=== PATIENT | female | born 1985 | race Caucasian/White ===

== ENCOUNTER → 2019-05-19 10:15 | Outpatient (CLI) | payer MEDICAID, SELFPAY ==
[2019-05-19 11:33] LABS: hCG Titer Quant., Serum < 1 mIU/mL (1-3)
== END ==
PROVIDERS: Referring Provider Obstetrics & Gynecology; Visit Provider Obstetrics & Gynecology
DX: N91.2 Amenorrhea, unspecified (principal)
CPT/HCPCS: 36415; 84702

== ENCOUNTER 2019-06-18 15:29 | Emergency (ER) | payer MEDICAID, SELFPAY ==
[2019-06-18 15:31] VITALS: BP 139/77; PULSE 63; RESP 14; TEMP 36.9; O2SAT 97; BMI 31.8
--- NOTE | 2019-06-18 15:55 | ED.VIS.GEN ---
History of Present Illness Informant: Patient Onset: Days - 3 days Context: Gradual Onset Timing: Continuous Quality: aching Location: bilateral ears Current Severity: Moderate Maximum Severity: Moderate Worsened by: Nothing Relieved by: nothing Associated Symptoms: Nasal congestion Narrative: 33-year-old female presents with bilateral ear pain for 3 days. She feels a fullness in her ear. No tinnitus or dizziness. No headache or neck pain. No fevers. Also complains of nasal congestion. No sinus pain or pressure. No sore throat or cough. No vomiting or diarrhea. No recent airplane travel scuba diving or trauma Prior similar symptoms: Yes Recent Illness/Hospitalization: No <Roberto Douglass - Last Filed: 06/18/19 15:56> <AlexisPhill - Last Filed: 06/18/19 16:14> Chief Complaint: Ear Problem Past Medical History Prior records reviewed: Yes Past Medical History: None Surgical History: no surgical history Lives: With Family Smoking Status: Current every day smoker <Roberto Douglass - Last Filed: 06/18/19 15:56> <Phill Espinoza - Last Filed: 06/18/19 16:14> - Allergies and Home Meds Allergies/Adverse Reactions: Allergies prednisone Allergy (Verified 06/18/19 15:31) Anaphylaxis Primary Care Physician: Babak Pimentel MD [NON-STAFF] - Care Physician,No Primary [Primary Care Provider] - Review of Systems All systems negative except as indicated ENT: Reports: Bilateral ear pain <Roberto Douglass - Last Filed: 06/18/19 15:56> Eyes: Denies: Visual changes - bilaterally, Blurred Vision - bilaterally, Diplopia ENT: Denies: Rhinorrhea, Sore throat Gastrointestinal: Denies: Nausea, Vomiting Musculoskeletal: Denies: Myalgias, Arthralgias, Neck pain Skin: Denies: Rash Hematologic: Denies: Easy bruising, Easy bleeding, Lymphadenopathy Allergy: Denies: Uticaria, Swelling of the mouth, Swelling of the tongue <AlexisPhill - Last Filed: 06/18/19 16:14> Physical Exam Vital Signs/Narrative: Vital Signs Temp Pulse Resp BP Pulse Ox 06/18/19 15:31 98.4 F 63 14 139/77 H 97 Inital Vital Signs reviewed: Yes General: Well nourished, Well developed, No Acute Distress Head: Normocephalic, Atraumatic Eyes: Perrl, EOMI ENT: Moist mucous membranes, TM's clear, Nasal congestion Neck: Supple, Nontender, No lymphadenopathy, No JVD Cardiovascular: Regular rate, Regular rhythm, No murmurs Respiratory: No distress, CTA bilaterally, Chest nontender Abdomen: Soft, Nontender, Nondistended, Normal bowel sounds, No masses Back: Nontender, Normal Inspection Extremities: Nontender, No edema Skin: Normal color, No rash Neurological: Alert, Oriented x3 Psychological: Normal affect <Roberto Douglass - Last Filed: 06/18/19 15:56> Vital Signs/Narrative: Vital Signs Temp Pulse Resp BP Pulse Ox 06/18/19 15:31 98.4 F 63 14 139/77 H 97 <Phill Espinoza - Last Filed: 06/18/19 16:14> Diagnostic/Tx/Re-eval - Medical Decision Making No evidence of external otitis or otitis media bilaterally. The patient has a small amount of fluid behind both tympanic membranes. Will place on a decongestant. Discussed smoking cessation. Discussed follow-up with primary care. Return precautions given. She is discharged <RafatRoberto - Last Filed: 06/18/19 15:56> - Medical Decision Making Patient's history is remarkable for bilateral ear pain for the past 3 days. She states pain is worse when she is supine. She denies rhinorrhea, congestion or postnasal drainage. She denies sore throat. She denies cough. She denies drainage from her ear. She does admit to frequent infections when she was a child. She denies headache. Denies visual, ocular auditory symptoms. She denies inability to open or close her mouth completely. She denies dental pain. She denies anterior or posterior neck pain. There is no history of trauma. She denies ringing or ears. Vital signs are noted. Patient appears no distress as I entered the room. She had pain out of proportion when I pulled on the right left auricle pushed on the right or left tragus. However when I pulled the posterior aspect of her ear to visualize her TM she did not complain of pain. There is evidence of scarring right TM with serous otitis. The left TM appears normal. There is no pain the patient over the TMJ joint and there is no clicking with opening close her mouth nor is her any pain. Patient has 10 lower teeth that remain with significant dental disease i.e. caries, gingivitis and periodontal disease. There is no evidence of swelling of the roof the mouth or gum. Uvula is midline. There is no exudate noted posterior pharynx. There is no muffled voice. Trach is midline. There is no stridor. There is no lymphadenopathy. There is no tenderness to palpation over the mastoids. Patient was informed that she does have a primary care provider that primary care provider is listed on her insurance card. She was treated with NSAIDs and she has no contraindication and decongestant. <Phill Espinoza - Last Filed: 06/18/19 16:14> ED Disposition <Roberto Douglass - Last Filed: 06/18/19 15:56> <Phill Espinoza - Last Filed: 06/18/19 16:14> - Plan for ED Patient: Disposition: Home or Assisted Living Diagnosis: Eustachian tube dysfunction Instructions: EARACHE w/o Infection (Adult) Prescriptions: Oxymetazoline HCl [Afrin] 15 ml NS DAILY #1 spray Prescription Printed Loratadine 10 mg PO DAILY #30 cap Prescription Printed Referrals: Care Physician,No Primary [Primary Care Provider] - Babak Pimentel MD [NON-STAFF] - Additional Instructions: Please check to see who your primary care physician is on your [place] card and call make an appointment with this physician.
== END 2019-06-18 16:19 | disposition home or self-care (01) ==
PROVIDERS: Emergency Provider Physician Assistant Medical
DX: H69.93 Unspecified Eustachian tube disorder, bilateral (principal); F17.200 Nicotine dependence, unspecified, uncomplicated
CPT/HCPCS: 99282

== ENCOUNTER 2020-12-08 13:55 | Emergency (ER) | payer MEDICAID, SELFPAY ==
[2020-12-08 13:57] VITALS: BP 136/75; PULSE 84; RESP 16; TEMP 36.7; O2SAT 96; BMI 25.0
--- NOTE | 2020-12-08 14:24 | ED.RN ---
[facility] CALL[facility], PATIENT IS TALKING WITH SHEREEN [facility] ON THE PHONE.
[2020-12-08 14:41] VITALS: BP 120/76; PULSE 74; RESP 16; O2SAT 99
--- NOTE | 2020-12-08 14:46 | ED.VIS.GEN ---
History of Present Illness Chief Complaint: Mental Health Informant: Patient Onset: Today Narrative: Patient brought in by police with a pink slip. Patient states that her fianc? told her today that he is still in love with his ex- and is leaving her. Reportedly the ex- also lives with them. Patient states that she tends to give herself tattoos when she is upset because she likes the pain. She showed me several tattoos on her right leg that she has done herself. Patient's ex reported to police that the patient was holding a knife to herself stating that she wanted to kill herself. Police document on their pink note that the patient stated she went to hurt herself by giving herself a tattoo. There is no documentation that statements of line to kill herself were made to police. At this time patient is very adamant that she has no intention of killing herself. She states she does give herself tattoos to feel pain and release her anger. - Past Medical History (1) Asthma Status: Chronic (2) Cervical cancer Status: Chronic Past Medical History - Allergies and Home Meds Allergies/Adverse Reactions: Allergies prednisone Allergy (Verified 12/08/20 13:57) Anaphylaxis Primary Care Physician: [facility] [GROUP OF PHYSICIANS] - As soon as possible Surgical History: appendectomy Lives: With Family Smoking Status: Current every day smoker Alcohol: Occasional Drugs: Marijuana Review of Systems General: Denies: Chills, Fever Eyes: Denies: Visual changes - bilaterally ENT: Denies: Bilateral ear pain Cardiovascular: Denies: Chest pain Respiratory: Denies: Dyspnea, Cough Gastrointestinal: Denies: Abdominal pain, Nausea, Vomiting, Diarrhea Genitourinary: Denies: Dysuria Musculoskeletal: Denies: Extremity Pain Skin: Reports: Wounds Neurological: Denies: Headache Psych: Reports: Anxiety. Denies: Suicidal thoughts Hematologic: Denies: Easy bruising, Easy bleeding Allergy: Denies: Uticaria Physical Exam Vital Signs/Narrative: Vital Signs Temp Pulse Resp BP Pulse Ox 12/08/20 14:41 74 16 120/76 99 12/08/20 13:57 98.1 F 84 16 136/75 H 96 Inital Vital Signs reviewed: Yes General: Well nourished, Well developed Head: Normocephalic ENT: Moist mucous membranes, - - Abrasion noted over the nasal bridge. Patient states this is from a fall 1 week ago. Neck: Supple Cardiovascular: Regular rate, Regular rhythm Respiratory: No distress, CTA bilaterally Abdomen: Soft, Nontender, Nondistended Back: Nontender Extremities: Nontender, No edema Skin: Normal color, No rash Neurological: Alert, Oriented x3 Psychological: - - Patient is anxious. She feels that she does not need to be here in the emergency room. She states multiple times that she has no intentions of killing herself. She does admit that she likes to give her self tattoos to feel pain and release her pent up feelings. Diagnostic/Tx/Re-eval - Medical Decision Making Patient states that she is well-known to the counseling center. I spoke with Agnela, on-call for them today. She was able to review the patient's records. She spoke with the patient on the phone as well. She agrees with the patient at this time is not indicating any desire to kill herself. Patient be discharged and counseling center will do a follow-up phone call later today to ensure patient is doing well. ED Disposition - Plan for ED Patient: Disposition: Home or Assisted Living Diagnosis: Anxiety Instructions: ED Anxiety Reaction Referrals: [facility] [GROUP OF PHYSICIANS] - As soon as possible
== END 2020-12-08 14:57 | disposition home or self-care (01) ==
PROVIDERS: Emergency Provider Emergency Medicine
DX: F41.9 Anxiety disorder, unspecified (principal); F17.200 Nicotine dependence, unspecified, uncomplicated; Z85.41 Personal history of malignant neoplasm of cervix uteri
CPT/HCPCS: 99283

== ENCOUNTER 2021-04-24 09:47 | Emergency (ER) | payer MEDICAID, SELFPAY ==
[2021-04-24 09:49] VITALS: BP 142/78; PULSE 69; RESP 17; TEMP 36.6; O2SAT 97; BMI 30.6
--- NOTE | 2021-04-24 09:56 | RAD_ITS ---
STUDY: X-RAY - RIGHT FOOT CLINICAL: Female, 35 years old. Injury/Pain TECHNIQUE: 3 view(s) of the foot. COMPARISON: None. FINDINGS: Normal talus, calcaneus, and tarsal bones. Normal visualized subtalar, talonavicular, calcaneocuboid, tarsal and tarsometatarsal articulations. Normal metatarsi. Normal metatarsophalangeal joint of the great toe. Normal tibial and fibular sesamoid bones. Normal interphalangeal joint of the great toe. Normal phalanges of the great toe. Normal second through fifth metatarsophalangeal joints. Normal interphalangeal joints and phalanges of the lesser toes. The soft tissue structures are unremarkable. RAD/Foot min 3 Views IMPRESSION: Normal x-ray examination of the foot. Electronically Signed: Ender Schneider MD at 10:34 EDT , Service support ,
--- NOTE | 2021-04-24 09:57 | ED.VIS.LOWEX ---
HPI History of Present Illness Chief Complaint: Lower Extremity Injury Detail of Chief Complaint: Right foot pain after blunt trauma Informant: patient Occured/Mechanism Mechanism/Context: Yes injury and Yes blunt trauma Onset/Context/Timing Onset: Yesterday Context: Sudden Onset Timing: Continuous Quality of Pain: Dull and Aching Location: Lateral right foot Current Severity: Mild Maximum Severity: Severe Worsened by: Attempt to bear weight Relieved by: Nothing Associated Symptoms Associated Symptoms: Positive for Loss of Funtion; Negative for Parasthesia and Weakness Narrative Narrative: Patient is a 35-year-old woman with no significant past medical history who presents with chief complaint of injury to her right foot. This occurred last evening while playing with her son. She states she injured it. She has a scrape due to the concrete. She localizes the pain to the lateral side of the right foot. Last tetanus is unknown. Patient denies paresthesia, anesthesia medics. States nothing has alleviated the pain. She denies history of diabetes. She denies history of PAD. Tetanus Immunization: Unknown Prior similar symptoms: No Recent Illness/Hospitalization: No PFSH PFSH Medical History Anxiety Depression Home Medications hydrocodone-acetaminophen 1 tab PO Q6H PRN PRN 5 Days #20 tablet 04/24/21 [Rx Last Taken Unknown] mirtazapine [Remeron] 15 mg PO DAILY 04/24/21 [History Last Taken Unknown] sertraline [Zoloft] 100 mg PO DAILY 04/24/21 [History Last Taken Unknown] Allergy/AdvReac Type Severity Reaction Status Date / Time prednisone Allergy Anaphylaxis Verified 04/24/21 09:47 Surgical History History of appendectomy History of tonsillectomy Social History (Updated 04/24/21 @ 09:[address] Phill Espinoza MD) household members: family Smoking Status: Current every day smoker tobacco type: cigarettes alcohol intake: current alcohol intake frequency: a few times a month substance use type: does not use ROS ROS ED Constitutional Constitutional ED: Denies chills, fever(s) or subjective Eyes Eyes: Denies blurry vision or change in vision ENT ENT ED: Denies ear pain, rhinorrhea or sore throat Musculoskeletal Musculoskeletal: Denies arthralgias, back pain, myalgias or neck pain Integumentary Reports Abrasions; Denies abscess or rash Hematologic/Lymphatic Hematologic/Lymphatic: Denies easy bleeding or easy bruising Allergic/Immunologic Allergic/Immunologic ED: Denies mouth swelling, tongue swelling or urticaria EXAM Physical Exam Const Vital Signs: 04/24/21 09:49 Temperature 97.8 F Temperature Source Temporal Pulse Rate 69 Respiratory Rate 17 Blood Pressure 142/78 H Blood Pressure Mean 99 Pulse Ox 97 Oxygen Delivery Method Room Air Positive well nourished, well developed and obese General Appearance ED: well developed Nutritional Appearance: obese HEENT atraumatic Eyes PERRL Eyes Narrative: Extract muscle intact. Sclerae anicteric. Neck full ROM Resp normal respiratory effort and clear to auscultation bilaterally Cardio regular rate, regular rhythm, S1 normal heart sound, S2 normal heart sound and no murmurs Extremity Negative for normal to inspection Extremity Narrative: There is an abrasion dorsal surface of the right little toe. There is pain palpation of the base of the fifth metatarsal. There is no pain elevation over the lateral medial malleolus. DP and PT pulse are palpable. The foot is swollen and discolored. General Extremety ED: Yes weight-bearing difficulty; Negative for cyanosis or edema General Extremity: weight-bearing difficulty; Negative for cyanosis or edema Neuro oriented x3, CN's II-XII intact bilaterally and no sensory deficits noted Sensorium / Orientation: alert Motor Exam: strength 5/5 throughout Psych mental status grossly normal Skin Lesions: no lesions Rashes: no rashes Trauma: abrasion MDM MDM MDM Narrative Medical decision making narrative: X-ray was obtained to evaluate for contusion versus fracture. Concern for fracture at the base of the fifth metatarsal. Patient was medicated with NSAID and opiate analgesia. Tetanus was updated. Radiography Diagnostic Testing: Three-view x-ray of the right foot reveals a nondisplaced fracture of the fifth metatarsal at the base. This does not involve the metaphysis. Treatment is postop shoe and crutches. She was referred to orthopedist [employer] chief. Since the orthopedist on-call is Dr. Rodo Tavera she is referred to podiatry. Discharge Plan Triage Chief Complaint: Lower Extremity Injury ED Provider: Phill Espinoza Dx/Rx/DC Orders Clinical Impression: Brown fracture Instructions: Fifth Metatarsal Fx Prescriptions: New hydrocodone-acetaminophen [hydrocodone-acetaminophen] 1 TABLET tablet 1 tab PO Q6H PRN PRN (Reason: Pain) 5 Days Qty: 20 RF: 0 No Action sertraline [Zoloft] 100 mg Tablet 100 mg PO DAILY RF: 0 mirtazapine [Remeron] 15 mg Tablet 15 mg PO DAILY RF: 0 Primary Care Provider: Care Physician,No Primary Referrals: Jessie Levy DPM [STAFF PHYSICIAN] - 5-7 Days Care Physician,No Primary [Primary Care Provider] - Activity Restrictions/Additional Instructions: 1. Weight as tolerated 2. Elevate and ice as much as possible 3. Contact Dr. Reid's office today for follow-up in 5 to 7 days Disposition Disposition: Home, Self Care
[2021-04-24] MEDS: Diphth,Pertuss(Acell),Tet Vac 0.5 ML Vial IM (10:28)
[2021-04-24] MEDS: Ibuprofen 600 MG Tablet PO (10:28)
[2021-04-24] MEDS: HYDROcodone Bitartrate/Apap 5/325 Tablet PO (10:28)
== END 2021-04-24 10:57 | disposition home or self-care (01) ==
PROVIDERS: Emergency Provider Emergency Medicine
DX: S92.351A Displaced fracture of fifth metatarsal bone, right foot, initial encounter for closed fracture (principal); E66.9 Obesity, unspecified; F17.210 Nicotine dependence, cigarettes, uncomplicated; F32.9 Major depressive disorder, single episode, unspecified; X58.XXXA Exposure to other specified factors, initial encounter; Z79.899 Other long term (current) drug therapy
CPT/HCPCS: 73630; 90471; 90715; 99285

== ENCOUNTER 2021-08-08 22:52 | Emergency (ER) | payer MEDICAID, SELFPAY ==
[2021-08-08 22:53] VITALS: BP 120/67; PULSE 118; RESP 22; TEMP 35.6; O2SAT 96; BMI 34.4
[2021-08-08 22:59] VITALS: BP 120/67; PULSE 118; RESP 22; TEMP 36.8; O2SAT 96
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
[2021-08-08] MEDS: Ziprasidone IM 20 MG/ML VIAL IM (23:33)
[2021-08-09] VITALS (13 sets, daily range): BP systolic 118–144; BP diastolic 62–73; PULSE 64–77; RESP 14–18; TEMP 36.6; O2SAT 95–99
[2021-08-09 00:26] LABS: Absolute Lymphocyte Count 3.28 X10^3/uL (0.83-4.51); Absolute Neutrophil Count 3.9 X10^3/uL (2.0-7.7); Basophil# 0.03 X10^3/uL; Basophil% 0.4 % (0-1); Eosinophil# 0.06 X10^3/uL; Eosinophils% 0.8 % (0-5); Hematocrit 37.9 % (37-47); Hemoglobin 12.5 g/dL (12.0-15.0); Lymphocyte # 3.28 X10^3/ul (0.83-4.51); Lymphocyte % 41.9 % (19-41); Mean Corpuscular Volume 84.8 fL (81-99); Mean Platelet Vol. 9.6 fl (6.2-12.0); Monocyte# 0.52 X10^3/uL; Monocyte% 6.6 % (0-10); NRBC Flagged by Analyzer 0 % (0-5); Neutrophil % 49.9 % (47-70); Platelet Count 393 K/mm3 (150-450); RBC Distribution Width CV 14.5 % (11.6-14.6); RBC Distribution Width SD 44.6 fl (35.1-43.9); Red Blood Count 4.47 M/mm3 (4.2-5.4); White Blood Count 7.8 K/mm3 (4.4-11.0)
[2021-08-09 00:32] LABS: Mucous, Urine 0 SEEN /hpf (<or=2+); Red Blood Cells-Urine 0 SEEN /hpf (0-5)
[2021-08-09 00:35] LABS: Color, Urine Yellow (Yellow); Glucose, Dipstick Normal (Normal); Ketone-Dipstick Negative (Negative); Leukocyte Esterase-Dipstick Negative /ul (Negative); Nitrite-Dipstick Negative (Negative); Occult Blood-Urine 250 /ul (Negative); Protein-Dipstick 30 mg/dl (Negative); Urine Bilirubin Dipstick Negative (Negative); Urine Clarity Clear (Clear); Urine Urobilinogen Normal (Normal)
[2021-08-09 00:41] LABS: Bacteria 2+ /hpf (None Seen); Hyaline Cast 0-5 SEEN /lpf (0-5); Squamous Epithelial Cells - UA 0-5 SEEN /hpf (5-10); White Blood Cells 0-5 SEEN /hpf (0-5)
[2021-08-09 00:42] LABS: Calcium Oxalate Crystals Ur RARE /hpf (<or=2+)
--- NOTE | 2021-08-09 00:47 | ED.RN ---
PER PT, HER COUSIN AKI IS ALLOWED TO RECEIVE INFORMATION ABOUT HER CARE OVER THE TELEPHONE.
[2021-08-09 00:50] LABS: ALB/GLOB Ratio 0.9 RATIO (0.9-2.4); AST(SGOT) 22 U/L (15-37); Alanine Aminotransfer ALT/SGPT 29 U/L (13-56); Albumin, Serum 3.3 g/dL (3.2-5.0); Alkaline Phosphatase 121 U/L (45-117); Anion Gap 8 (5-15); BUN 8 mg/dL (7-18); BUN/Creat Ratio 9.2 RATIO (10-20); Calcium,Total 7.9 mg/dL (8.5-10.1); Chloride 111 mmol/L (98-107); Creatinine, Serum 0.86 mg/dL (0.55-1.02); EST Glomerular Filtration Rate 80 mL/min (>60); Est Glom Filt Rate - Afr Amer 96 mL/min (>60); Estimated Creatinine Clearance 79.59 ml/min; Globulin 3.7 g/dL (2.2-4.2); Glucose 139 mg/dL (74-106); Potassium 2.9 mmol/L (3.5-5.1); Sodium Level 143 mmol/L (136-145); Thyroid Stim Hormone (TSH) 3.18 uIU/mL (0.358-3.74)
[2021-08-09 00:55] LABS: Internal QC Validated? YES +Cl - CLEAR BKGD; Pregnancy, Serum, hCG Quali. NEGATIVE Negative
[2021-08-09 01:16] LABS: Amphetamine Urine VISTA NEGATIVE (<1000 ng/mL); Barbiturate Urine VISTA NEGATIVE (< 200 ng/mL); Benzodiazepine Urine VISTA NEGATIVE (< 200 ng/mL); Cocaine Urine VISTA NEGATIVE (< 300 ng/mL); Ecstacy Urine VISTA NEGATIVE (< 500 ng/mL); Methadone Urine VISTA NEGATIVE (< 300 ng/mL); PCP Urine VISTA NEGATIVE (< 25 ng/mL); THC Urine VISTA POSITIVE (< 50 ng/mL); Vista UDS pH Range 5
[2021-08-09 02:51] LABS: Potassium 3.5 mmol/L (3.5-5.1)
--- NOTE | 2021-08-09 07:57 | ED.RN ---
WITH PT VERBAL PERMISSION THIS RN TALKED WITH PT LISA PRABHAKAR AND INFORMED HER OF PLAN OF CARE.
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
--- NOTE | 2021-08-09 13:59 | CM.ED ---
SOCIAL WORK Referrals faxed to [facility] and [facility]. Pending review at this time. Jelly Foster, MARINE CARGO INSPECTOR, IT APPLICATIONS ANALYST
[2021-08-09] MEDS: LORazepam 1 MG Tablet 2 MG PO (14:25)
--- NOTE | 2021-08-09 14:27 | ED.RN ---
AK[facility] PT COUSIN TO BE NOTIFIED WHEN TRANSFERRED. PHONE [phone]
[2021-08-09] MEDS: Sertraline 100 MG Tablet PO (14:31)
--- NOTE | 2021-08-09 14:57 | CM.ED ---
SOCIAL WORK Call from [place] with [facility], patient accepted by Dr. Pennington to [facility]. Nurse to call report to [phone] option 1. [facility] faxed per request. Call to [facility], ETA 60 minutes. Staff and patient updated. Plan: [facility] Jelly Foster MSW, PUBLIC IMPROVEMENT INSPECTOR
--- NOTE | 2021-08-09 15:18 | CM.ED ---
SOCIAL WORK Call to [facility] to inform placement has been obtained. Jelly Foster, EXTRUSION FORMER, MOLDER
== END 2021-08-09 18:00 ==
PROVIDERS: Emergency Medicine; Emergency Provider Emergency Medicine
DX: R45.851 Suicidal ideations (principal); F10.129 Alcohol abuse with intoxication, unspecified; F17.210 Nicotine dependence, cigarettes, uncomplicated; F32.9 Major depressive disorder, single episode, unspecified; F41.9 Anxiety disorder, unspecified; Z79.899 Other long term (current) drug therapy
CPT/HCPCS: 36415; 80053; 80307; 81001; 82077; 84132; 84443; 84703; 85025; 87426; 96372; 99285; J3486

== ENCOUNTER 2024-02-21 19:02 | Emergency (ER) | payer MEDICARE, MEDICAID, SELFPAY ==
[2024-02-21] VITALS (8 sets, daily range): BP systolic 116–142; BP diastolic 60–79; PULSE 58–84; RESP 15–17; TEMP 36.6–36.7; O2SAT 98–100; BMI 33.5
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
[2024-02-21] MEDS: Ondansetron 4 MG/2 ML Vial IV (19:48)
[2024-02-21] MEDS: Morphine 4 MG/ML Syringe IV (19:49)
--- NOTE | 2024-02-21 19:55 | RAD_ITS ---
STUDY: X-RAY - RIGHT WRIST REASON FOR EXAM: Female, 38 years old. r wrist pain TECHNIQUE: 3 view(s) of the wrist were obtained. COMPARISON: None. FINDINGS: Acute volarly displaced and depressed oblique fracture of the distal radius with extension the radiocarpal joint. Consistent with a Hackett fracture Normal radiocarpal articulation. Normal distal radioulnar articulation. Normal carpal bones. Normal carpal articulations. Normal carpometacarpal articulation of the thumb. Normal second through fifth carpometacarpal articulations. Normal visualized metacarpal bones. The soft tissue structures are unremarkable. RAD/Wrist min 3 Views IMPRESSION: Acute anteriorly displaced and depressed Hackett fracture. Electronically Signed: Sea Horn MD at 20:27 EDT ,
[2024-02-21] MEDS: Etomidate 20 MG/10 ML Vial 13 MG IV (21:21)
--- NOTE | 2024-02-21 21:30 | RAD_ITS ---
STUDY: X-RAY - RIGHT WRIST REASON FOR EXAM: Female, 38 years old. post reduction TECHNIQUE: 3 view(s) of the wrist were obtained. COMPARISON: Earlier today FINDINGS: Improved alignment of the anteriorly displaced oblique fracture of the volar aspect of the distal radius. Normal radiocarpal articulation. Normal distal radioulnar articulation. Normal carpal bones. Normal carpal articulations. Normal carpometacarpal articulation of the thumb. Normal second through fifth carpometacarpal articulations. Normal visualized metacarpal bones. Plaster cast obscures soft tissue and bony detail. RAD/Wrist min 3 Views IMPRESSION: Improved alignment of Hackett fracture. Electronically Signed: Sea Horn MD at 21:40 EDT ,
== END 2024-02-21 22:37 | disposition home or self-care (01) ==
PROVIDERS: Emergency Provider Emergency Medicine; Visit Provider Emergency Medicine
DX: S62.91XA Unspecified fracture of right hand, initial encounter for closed fracture (principal); S09.90XA Unspecified injury of head, initial encounter; F17.210 Nicotine dependence, cigarettes, uncomplicated; J45.909 Unspecified asthma, uncomplicated; F41.9 Anxiety disorder, unspecified; F32.A Depression, unspecified; V86.95XA Unspecified occupant of 3- or 4- wheeled all-terrain vehicle (ATV) injured in nontraffic accident, initial encounter; Z79.899 Other long term (current) drug therapy
CPT/HCPCS: 70450; 71250; 72125; 73110; 74176; 96374; 96375; 99285; J7030; A4216; J2405